=== PATIENT | male | born 1940 | race Caucasian/White ===

== ENCOUNTER → 2017-04-12 | Outpatient (CLI) | payer MEDICARE ==
[~2017-04-12] MED LIST: ENZY1CAP PO; FOLI400T PO; MAGNESIUM PO; MULT-412 PO; OXYC-302 PO; SLIPPERY ELM PO
== END ==
LOC: LAB 11:57
PROVIDERS: ATTEND Family Medicine
DX: E29.1 Testicular hypofunction (principal)
CPT/HCPCS: 36415; 84403